=== PATIENT | female | born 1955 | race Caucasian/White ===

== ENCOUNTER 2016-05-16 02:12 | Inpatient (IN) | payer BC ==
[~2016-05-16] VITALS: Ht 170.2 cm; Wt 79.4 kg
[2016-05-16 03:26] LABS: APPEARANCE CLEAR (CLEAR); BILIRUBIN NEGATIVE (NEGATIVE); COLOR YELLOW (YELLOW); GLUCOSE NEGATIVE (NEGATIVE); KETONE NEGATIVE (NEGATIVE); LEUKOCYTE ESTERASE NEGATIVE (NEGATIVE); NITRITE NEGATIVE (NEGATIVE); PROTEIN NEGATIVE (NEGATIVE); UROBILINOGEN NORMAL (NORMAL)
[2016-05-16 04:42] LABS: BASOPHILS 0.2 % (0.0-2.0); EOSINOPHILS 0.5 % (0-7); HEMATOCRIT 37.3 % (36.0-48.0); HEMOGLOBIN 12.4 g/dL (12-16); IMMATURE GRANULOCYTES 0.4 % (0-5); LYMPHOCYTES 12.6 % (15-50); MCH 28.5 pg (26.0-34.0); MCHC 33.2 g/dL (31.0-37.0); MCV 85.7 fL (80.0-100.0); MEAN PLATELET VOLUME 11.1 fL (7.4-10.4); MONOCYTES 5.6 % (2-11); NEUTROPHILS 80.7 % (40-80); PLATELET COUNT 257 10x3/uL (130-400); RBC 4.35 10x6/uL (4.00-5.40); RDW 12.9 % (11.5-14.5); WBC 11.5 10x3/uL (4.8-10.8)
[2016-05-16 04:57] LABS: AMYLASE - SERUM 19 U/L (25-115); CALC OSMOLALITY 286 mosm/kg (275-300); CALCIUM 8.4 mg/dL (8.5-10.1); CARBON DIOXIDE 23.3 mmol/L (21.0-32.0); CHLORIDE - SERUM 105 mmol/L (98-107); CREATININE - SERUM 0.8 mg/dL (0.6-1.3); GLUCOSE 126 mg/dL (74-106); POTASSIUM - SERUM 3.6 mmol/L (3.5-5.1); SODIUM 142 mmol/L (136-145); UREA NITROGEN 18 mg/dL (7-18); eGFR NON AFRICAN AMERICAN 77 mL/min (90-120)
--- NOTE | 2016-05-16 07:00 | NUR ---
PATIENT IN BED WITH EYES CLOSED RESTING QUIETLY AT THIS TIME. CALL LIGHT WITHIN REACH. NO SIGNS OF DISTRESS.
--- NOTE | 2016-05-16 07:50 | NUR ---
PT REC'D FROM AJ HANSON. RESTING IN BED AAOX4. RATING CURRENT PAIN IN ABD 07/01. PROTONIX DRIP STARTED. WILL REASSESS. PIV SITE TO L HAND PATENT AND FREE OF REDDNESS AND SWELLING. BED LOW, CALL LIGHT IN REACH, DENIES NEEDS. CPOC.
[2016-05-16] MEDS ORDERED: SYNTHROID25 MCG PO (08:01)
[2016-05-16] MEDS ORDERED: ELAVIL10 MG PO (08:01)
[2016-05-16] MEDS ORDERED: BAYER CHEWABLE81 MG PO (08:02)
[2016-05-16] MEDS ORDERED: DULCOLAX STOOL100 MG PO (08:03)
[2016-05-16 08:38] VITALS: BP 135/86
[2016-05-16 13:04] VITALS: BP 107/67
[2016-05-16 13:08] VITALS: BMI 27.4
[2016-05-16 15:58] VITALS: BP 107/67; Ht 170.2 cm; Wt 79.4 kg
[2016-05-16 16:16] LABS: CKMB 0.2 U/L (0.0-3.6); CREATINE KINASE 29 UL (21-215); TROPONIN-I < 0.017 ng/mL (0.000-0.060)
[2016-05-16 16:43] VITALS: BP 136/71
[2016-05-16] MEDS ORDERED: LEVOTHYROXINE100 MCG (19:39)
[2016-05-16 20:00] VITALS: BP 133/70
[2016-05-16 22:20] LABS: CKMB 0.3 U/L (0.0-3.6); CREATINE KINASE 28 UL (21-215); TROPONIN-I < 0.017 ng/mL (0.000-0.060)
--- NOTE | 2016-05-16 23:08 | NUR ---
REC'D PATIENT FROM Kayce GONZALES LPN. PATIENT LYING SEMI FOWLERS IN BED. ALERT AND ORIENTED X4. DENIES PAIN AT THIS TIME. IS UP WITHOUT ASSIST. MUCUS MEMBRANES PINK AND MOIST. DENIES HEARING AND VISION PROBLEMS. HR S1 S2. LUNGS CLEAR IN ALL LOBES. ABDOMEN SOFT NON TENDER TO TOUCH. BOWELS HYPOACTIVE X4. REPORTED LAST BM 05/16/16. URINE CLEAR, STRAW-COLORED. DENIES PAIN ON URINATION. BLADDER NOT PALPABLE. FULL ROM IN UPPER AND LOWER EXTREMITIES. CAP REFILL <3 SECS IN UPPER AND LOWER EXTREM. IS A DALIY WEIGHT ON STRICT I&O. DENIES FURTHER NEEDS AT THIS TIME. INTRUCTED TO CALL IF NEEDED ANYTHING. PATIENT VERBLAZIED UNDERSTANDING. BED LOW, LOCKED, CALL LIGHT IN REACH.
[2016-05-17] VITALS: BP 115/72
--- NOTE | 2016-05-17 01:26 | NUR ---
PATIENT LYING IN BED ALSEEP. DENIES NEEDS AT THIS TIME. INTRUCTED TO CALL IF NEEDED ANYTHING. VERBALIZED UNDERSTANDING. BED LOW, LOCKED, CALL LIGHT IN REACH.
[2016-05-17 04:00] VITALS: BP 123/61
[2016-05-17 04:00] LABS: BASOPHILS 0.4 % (0.0-2.0); EOSINOPHILS 2.2 % (0-7); HEMATOCRIT 33.9 % (36.0-48.0); IMMATURE GRANULOCYTES 0.3 % (0-5); LYMPHOCYTES 36.2 % (15-50); MCH 28.4 pg (26.0-34.0); MCHC 32.4 g/dL (31.0-37.0); MCV 87.4 fL (80.0-100.0); MEAN PLATELET VOLUME 11.4 fL (7.4-10.4); MONOCYTES 6.2 % (2-11); NEUTROPHILS 54.7 % (40-80); PLATELET COUNT 226 10x3/uL (130-400); RBC 3.88 10x6/uL (4.00-5.40); RDW 13.2 % (11.5-14.5)
--- NOTE | 2016-05-17 04:00 | NUR ---
PATIENT SLEEPING WITH NO DISTRESS NOTED. CALL LIGHT WITHIN REACH.
[2016-05-17 04:05] LABS: WBC 7.6 10x3/uL (4.8-10.8)
[2016-05-17 04:44] LABS: ALBUMIN 3.1 g/dL (3.4-5.0); ALKALINE PHOSPHATASE 80 U/L (46-116); ALT (SGPT) 20 U/L (10-68); BILIRUBIN - TOTAL 0.61 mg/dL (0.2-1.3); CALCIUM 7.9 mg/dL (8.5-10.1); CARBON DIOXIDE 25.4 mmol/L (21.0-32.0); CHLORIDE - SERUM 110 mmol/L (98-107); CKMB 0.2 U/L (0.0-3.6); CREATINE KINASE 25 UL (21-215); CREATININE - SERUM 0.6 mg/dL (0.6-1.3); GLUCOSE 94 mg/dL (74-106); POTASSIUM - SERUM 3.4 mmol/L (3.5-5.1); PROTEIN - SERUM 5.8 g/dL (6.4-8.2); SODIUM 142 mmol/L (136-145); eGFR NON AFRICAN AMERICAN > 90 mL/min (90-120)
[2016-05-17 04:46] LABS: CALC OSMOLALITY 281 mosm/kg (275-300); TROPONIN-I < 0.017 ng/mL (0.000-0.060); UREA NITROGEN 10 mg/dL (7-18)
--- NOTE | 2016-05-17 05:54 | NUR ---
PATIENT IS SITTING UP IN BED WATCHING TV. DENIES NEEDS AT THIS TIME. INTRUCTED TO CALL IF NEEDED ANYTHING. VERBLALIZED UNDERSTANDING. BED LOW, LOCKED, CALL LIGHT IN REACH.
--- NOTE | 2016-05-17 07:15 | NUR ---
REPORT RECEIVED FROM SUPERVISOR MOLD YARD NURSE. CALL LIGHT IN REACH.
--- NOTE | 2016-05-17 07:30 | NUR ---
PATIENT IN BED WITH NO COMPLAINTS AT THIS TIME. IV INTACT. CALL LIGHT WITHIN REACH.
[2016-05-17 08:35] VITALS: BP 126/68
--- NOTE | 2016-05-17 09:30 | NUR ---
ASSESSMENT COMPLETED. CALL LIGHT IN REACH. WILL CONTINUE WITH PLAN OF CARE.
--- NOTE | 2016-05-17 11:03 | NUR ---
AMBULATED IN HALLWAY ADLB. TOLERATED WELL. WANTS TO TAKE SHOWER BEFORE PREP STARTS.
[2016-05-17 11:23] VITALS: BP 123/74
--- NOTE | 2016-05-17 11:56 | NUR ---
FIRST DOSE OF OSMOPREP ADMINISTERED WITH 12 OZ OF WATER AND 8 OZ SPRITE.
--- NOTE | 2016-05-17 12:30 | NUR ---
2ND DOSE OF PILLS GIVEN. VISITOR IN ROOM. CALL LIGHT IN REACH.
--- NOTE | 2016-05-17 13:05 | NUR ---
3RD DOSE ADMINISTERED. WAITING ON PROTONIX BAG FROM PHARMACY.
--- NOTE | 2016-05-17 13:27 | NUR ---
NEW BAG OF PROTONIX INITIATED. 4TH DOSE OF MEDS GIVEN. DR. WIGGINS IN ROOM. CALL LIGHT IN REACH.
--- NOTE | 2016-05-17 14:07 | NUR ---
C/O NAUSEA. NEW ORDER FOR ZOFRAN.
--- NOTE | 2016-05-17 14:18 | NUR ---
ZOFRAN 4 MG SIVP. CALL LIGHT IN REACH.
[2016-05-17 15:50] VITALS: BP 146/62
--- NOTE | 2016-05-17 16:17 | NUR ---
ISADORACOLAX PO PER ORDER. CALL LIGHT IN REACH.
--- NOTE | 2016-05-17 18:01 | NUR ---
NO CHANGES IN INITIAL ASSESSMENT. CALL LIGHT IN REACH. FAMILY IN ROOM. WILL CONTINUE WITH PLAN OF CARE.
[2016-05-17 19:00] VITALS: BP 116/69
--- NOTE | 2016-05-17 20:10 | NUR ---
ASSESSMENT COMPLETED, NO ACUTE DISTRESS NOTED, FALL PRECAUTIONS IN PLACE, CL IN REACH, WILL MONITOR
--- NOTE | 2016-05-17 21:44 | NUR ---
PRN ZOFRAN GIVEN PER REQUEST ALONG WITH [employer] AND SCHEDULED PROTONIX, GLADIS WELL, DENIES OTHER NEEDS, WILL MONITOR
--- NOTE | 2016-05-17 23:36 | NUR ---
RESTING WITH EYES CLOSED, RESP WITH EASE, NO DISTRESS NOTED, CL IN REACH
--- NOTE | 2016-05-18 01:52 | NUR ---
CONTINUES TO REST WITH EYES CLOSED, NO DISTRESS NOTED, CL IN REACH
[2016-05-18 04:00] VITALS: BP 113/70
[2016-05-18 06:03] LABS: BASOPHILS 0.2 % (0.0-2.0); EOSINOPHILS 1.6 % (0-7); HEMOGLOBIN 10.2 g/dL (12-16); IMMATURE GRANULOCYTES 0.3 % (0-5); LYMPHOCYTES 32.2 % (15-50); MCH 28.4 pg (26.0-34.0); MCHC 32.9 g/dL (31.0-37.0); MCV 86.4 fL (80.0-100.0); MEAN PLATELET VOLUME 10.9 fL (7.4-10.4); MONOCYTES 6.6 % (2-11); NEUTROPHILS 59.1 % (40-80); PLATELET COUNT 257 10x3/uL (130-400); RBC 3.59 10x6/uL (4.00-5.40); RDW 13.4 % (11.5-14.5); WBC 8.7 10x3/uL (4.8-10.8)
[2016-05-18 06:26] LABS: ALBUMIN 2.9 g/dL (3.4-5.0); ALKALINE PHOSPHATASE 75 U/L (46-116); ALT (SGPT) 21 U/L (10-68); BILIRUBIN - TOTAL 0.58 mg/dL (0.2-1.3); CALC OSMOLALITY 284 mosm/kg (275-300); CALCIUM 7.7 mg/dL (8.5-10.1); CARBON DIOXIDE 24.4 mmol/L (21.0-32.0); CHLORIDE - SERUM 111 mmol/L (98-107); CREATININE - SERUM 0.6 mg/dL (0.6-1.3); GLUCOSE 102 mg/dL (74-106); PROTEIN - SERUM 5.6 g/dL (6.4-8.2); SODIUM 144 mmol/L (136-145); UREA NITROGEN 7 mg/dL (7-18); eGFR NON AFRICAN AMERICAN > 90 mL/min (90-120)
--- NOTE | 2016-05-18 07:28 | NUR ---
10 MEQ DALILAER HUNG PER E. PROTOCOL FOR LEVEL OF 3.0, GLADIS WELL, CL IN REACH
--- NOTE | 2016-05-18 08:00 | NUR ---
UNABLE TO TOLERATE IV POTASSIUM FOR PROTOCOL, PT IS NPO FOR EGD AND COLONOSCOPY. WILL TREAT POTASSIUM POST PROCEDURE. CALL LIGHT IN REACH, WILL CONTINUE WITH PLAN OF CARE.
[2016-05-18 08:04] VITALS: BP 115/63
--- NOTE | 2016-05-18 09:30 | NUR ---
AMBULATING IN HALLWAY INDEPENDENTLY AT THIS TIME. DENIES NEEDS AT THIS TIME. REMAINS NPO.
[2016-05-18 12:11] VITALS: BP 125/68
--- NOTE | 2016-05-18 14:00 | NUR ---
1,500 ML WARM, SOAP SUDS ENEMA ADMINISTERED WITHOUT DIFFICULTY. PT ABLE TO WITHOLD FLUID FOR 5 MINUTES BEFORE EXPELLING. RESULT WAS CLEAR. NO FURTHER ENEMAS NEEDED.
--- NOTE | 2016-05-18 14:38 | NUR ---
Patient Name: JOSEP DONIS Admission Status: ER Accout number: [id number] Admission Date: 05-17-2016 : 1955 Admission Diagnosis: Attending: DONNA Current LOS: 1 Anticipated DC Date: 05-20-2016 Planned Disposition: Home Primary Insurance: [place] OUT OF STATE Discharge Planning Comments: CM MET WITH PATIENT REGARDING D/C NEEDS AND PLANS. PATIENT STATED SHE LIVES WITH HER SPOUSE (VIGNESH) AND HE WILL DRIVE HER HOME AT DISCHARGE. PATIENT IS INDEPENDENT WITH HER CARE AND HAS NO DME AT HOME. PATIENTS PCP IS DR. BATES AND PHARMACY IS [facility] [address] PATIENT HAS NEVER HAD HOME HEALTH AND DOES NOT THINK SHE WILL NEED IT AT D/C AT THIS TIME. CM WILL CONTINUE TO FOLLOW PATIENT WITH D/C NEEDS AND PLANS. PCP DR[facility] [address] [phone] VIGNESH (SPOUSE) [phone] Stacker Driver: Trudy Matos Is the patient Alert and Oriented? Yes 0 * How many steps to enter\exit or inside your home? 0 0 * PCP JANA 0 * Pharmacy [facility] [address] 0 * Preadmission Environment Home with Family 0 * ADLs Independent 0 * Equipment None 0 * List name and contact numbers for known caregivers / representatives who currently or will assist patient after discharge: VIGNESH (SPOUSE) [phone] * Community resources currently utilized None 0 * Additional services required to return to the preadmission environment? Yes 0 * Can the patient safely return to the preadmission environment? Yes 0 * Has this patient been hospitalized within the prior 30 days at any hospital? No 0 Grand Total: 0
[2016-05-18 15:10] VITALS: BP 127/83
--- NOTE | 2016-05-18 17:20 | NUR ---
TAKEN FOR EGD AND COLONOSCOPY AT THIS TIME. WILL MONITOR PT WHEN SHE RETURNS TO HER ROOM.
--- NOTE | 2016-05-18 18:20 | NUR ---
REPORT RECEIVED FROM SORAYA AZUL RN IN THE GI LAB. STATED PT WAS STABLE AND WOULD BE TRANSFERRED BACK TO ROOM 2232.
--- NOTE | 2016-05-18 18:22 | NUR ---
1742-INJECT 3 CC EPINEPHERINE WITH GOLD PROBE INTO DUODINAL ULCER.
[2016-05-18 18:45] VITALS: BP 133/57
--- NOTE | 2016-05-18 18:45 | NUR ---
RECEIVED BACK TO ROOM 2232 AT THIS TIME. VITAL SIGNS STABLE AND FAMILY AT BEDSIDE. IV TO LEFT HAND PATENT. WILL CONTINUE WITH PLAN OF CARE.
--- NOTE | 2016-05-18 19:20 | NUR ---
ASSESSMENT COMLETED, NO ACUTE DISTRESS NOTED, DENIES NEEDS, SPOUSE IN ROOM, FALL PRECAUTIONS IN PLACE, CL IN REACH, WILL MONITOR
--- NOTE | 2016-05-18 21:24 | NUR ---
CARAFATE GIVEN PER MAR, GLADIS WELL, PLACED ON BEDPAN PER REQUEST, DENIES OTHER NEEDS, CL IN REACH
--- NOTE | 2016-05-18 23:42 | NUR ---
RESTING WITH EYES CLOSED, RESP WITH EASE, NO DISTRESS NOTED, SPOUSE AT BEDSIDE, CL IN REACH
[2016-05-19 04:00] VITALS: BP 103/61
--- NOTE | 2016-05-19 05:41 | NUR ---
MEDS GIVEN PER MAR, GLADIS WELL, SPOUSE IN ROOM, CL IN REACH
[2016-05-19 06:30] LABS: BASOPHILS 0.3 % (0.0-2.0); HEMATOCRIT 28.5 % (36.0-48.0); HEMOGLOBIN 9.5 g/dL (12-16); IMMATURE GRANULOCYTES 0.3 % (0-5); LYMPHOCYTES 31.5 % (15-50); MCH 28.8 pg (26.0-34.0); MCHC 33.3 g/dL (31.0-37.0); MCV 86.4 fL (80.0-100.0); MEAN PLATELET VOLUME 11.1 fL (7.4-10.4); MONOCYTES 6.2 % (2-11); NEUTROPHILS 60.7 % (40-80); PLATELET COUNT 267 10x3/uL (130-400); RDW 13.3 % (11.5-14.5); WBC 7.8 10x3/uL (4.8-10.8)
[2016-05-19 06:58] LABS: ALBUMIN 2.8 g/dL (3.4-5.0); ALKALINE PHOSPHATASE 74 U/L (46-116); ALT (SGPT) 23 U/L (10-68); CALC OSMOLALITY 278 mosm/kg (275-300); CALCIUM 8.2 mg/dL (8.5-10.1); CARBON DIOXIDE 26.3 mmol/L (21.0-32.0); CHLORIDE - SERUM 106 mmol/L (98-107); CREATININE - SERUM 0.6 mg/dL (0.6-1.3); GLUCOSE 93 mg/dL (74-106); POTASSIUM - SERUM 3.1 mmol/L (3.5-5.1); PROTEIN - SERUM 5.4 g/dL (6.4-8.2); SODIUM 140 mmol/L (136-145); eGFR NON AFRICAN AMERICAN > 90 mL/min (90-120)
[2016-05-19 07:00] LABS: UREA NITROGEN 13 mg/dL (7-18)
[2016-05-19 08:39] VITALS: BP 131/69
[2016-05-19 11:43] VITALS: BP 119/49
--- NOTE | 2016-05-19 15:11 | NUR ---
NUTRITION MONITORING & EVAL CHART REVIEWED. CLEAR LIQUID DIET. WILL MONITOR DIET ADVANCEMENT, PO INTAKE. RD FOLLOWING
[2016-05-19 17:04] VITALS: BP 110/55
--- NOTE | 2016-05-19 18:11 | PRO ---
PATIENT:JOSEP DONIS MEDICAL RECORD: [id number] : 51 LOCATION:[facility] ADMISSION DATE: 05/17/16 PROCEDURE PERFORMED BY: VIGNESH ANDERSON MD DATE OF PROCEDURE: 05/18/2016 ACADEMIC VICE PRESIDENT: Vignesh Anderson MD PROCEDURE: EGD with biopsy and cauterization of a duodenal ulcer as well as colonoscopy. INDICATION: Patient is a 60-year-old white female whose primary care physician is Dr. Danilo Valdivia and with history of underlying chronic constipation, irritable bowel syndrome, fibromyalgia, basically who was admitted with epigastric pain and black stool. She apparently went to walk-in clinic and a CT of the abdomen was reportedly weird and was abnormal revealing a questionable soft tissue mass in the lumen of the proximal ascending colon. She had heme-positive stool. She was subsequently admitted for further evaluation. She apparently had a colonoscopy 3 years ago that was normal by another physician. She is already status post cholecystectomy. She is now for both upper and lower endoscopy. She is on a baby aspirin daily. She is not on a PPI. On admission, her BUN was 18, creatinine was 37, today is 31. PREMEDICATION: Taper anesthesia. INSTRUMENT: Olympus video gastroscope and adjustable colonoscope. FINDINGS: Her EGD was performed first. The gastroscope was passed through the oropharynx to the second portion of the duodenum without difficulty. The esophagus and stomach were basically normal other than scant gastritis. There was some blood-tinged fluid in the stomach, which was suctioned. The duodenum was entered, it was remarkable for a fairly large blood clot that looked fairly fresh and accomplished roughly the whole duodenal bulb. After a lot of irrigation and suctioning, I was finally able to pull this clot off of a fairly moderate to large sized duodenal ulcer on the anterior wall of the second portion of duodenum right in the curvature. There was an obvious visible vessel seen that was quite friable. This ulcer was about probably 1.5-2 cm in diameter. I elected to treat this ulcer, first by injecting a cc of epinephrine times 3 around the vessels best possible. I then cauterized the vessel with gold probe using 30 joules times 2 with seemingly good results. I did take some biopsies from the stomach to rule out H. pylori by means of histology. The rest of exam was normal. I then performed a colonoscopy. Rectal exam was normal. The colonoscope passed through the rectum into the cecum with mild to moderate difficulties secondary to quite a bit of loop in the colon. Prep was fair to borderline. There was quite a bit of melena in the colon making visualization little difficult. Inspection of the right colon; however, from what I can tell colonoscopy was normal. There was certainly no mass in ascending colon at all. Again, the prep was somewhat borderline, so small mucosal abnormalities could have been missed, however, there is nothing significant seen. The patient tolerated the procedure well without any complication. IMPRESSION: 1. Moderate to large sized duodenal ulcer with an actively bleeding visible PROCEDURE NOTE [id number] JOSEP DONIS, now status post cauterization with gold probe and injection of epinephrine as noted above. 2. Scant gastritis. 3. Otherwise, normal EGD and colonoscopy. RECOMMENDATIONS: 1. Actually avoid all aspirin and NSAIDs. 2. Continue Protonix drip. 3. Carafate 1 gram q.i.d. for now. 4. Follow up biopsy results. 5. We need to watch her in the hospital for another day or two to ensure there no further bleeding from this ulcer. Once we know she has stopped bleeding, can advance diet and discharge to home. She will need long-term PPI therapy. TRANSINT:[id number] Voice Confirmation ID: [id number] DOCUMENT ID: [id number] VIGNESH ANDERSON MD at 1811 CC: SHENG THOMPSON MD and HODAN BATES MD [id number] DICTATION DATE: 05/18/16 1824 DRILL PRESSER: 05/19/16 0651 [facility] IN [facility] [address] [id number]
[2016-05-19 19:00] VITALS: BP 126/74
--- NOTE | 2016-05-19 19:00 | NUR ---
PATIENT IN BED WATCHING TV. HOB 30 DEGREES. AAOX4. RR EVEN AND UNLABORED. 0 S/S OF DISTRESS. DENIES PAIN AT THIS TIME. IV TO LEFT HAND PATENT WITH NO REDNESS OR SWELLING. CSD'S ON. SRX2. BED LOW. CALL LIGHT WITHIN REACH.
--- NOTE | 2016-05-19 21:00 | NUR ---
ASSESSMENT COMPLETE. NIGHTTIME MED GIVEN. NO OTHER NEEDS AT THIS TIME.
[2016-05-20 04:00] VITALS: BP 102/63
--- NOTE | 2016-05-20 04:00 | NUR ---
PATIENT SLEEPING WITH NO DISTRESS NOTED. CALL LIGHT WITHIN REACH.
[2016-05-20 05:21] LABS: BASOPHILS 0.5 % (0.0-2.0); EOSINOPHILS 1.8 % (0-7); HEMATOCRIT 27.1 % (36.0-48.0); HEMOGLOBIN 9.2 g/dL (12-16); IMMATURE GRANULOCYTES 0.3 % (0-5); LYMPHOCYTES 28.2 % (15-50); MCH 29.4 pg (26.0-34.0); MCHC 33.9 g/dL (31.0-37.0); MCV 86.6 fL (80.0-100.0); MEAN PLATELET VOLUME 10.8 fL (7.4-10.4); MONOCYTES 7.8 % (2-11); NEUTROPHILS 61.4 % (40-80); PLATELET COUNT 262 10x3/uL (130-400); RBC 3.13 10x6/uL (4.00-5.40); RDW 13.6 % (11.5-14.5); WBC 6.6 10x3/uL (4.8-10.8)
[2016-05-20 05:37] LABS: ALBUMIN 2.8 g/dL (3.4-5.0); ALKALINE PHOSPHATASE 65 U/L (46-116); ALT (SGPT) 21 U/L (10-68); BILIRUBIN - TOTAL 0.55 mg/dL (0.2-1.3); CALCIUM 7.7 mg/dL (8.5-10.1); CARBON DIOXIDE 25.3 mmol/L (21.0-32.0); CREATININE - SERUM 0.6 mg/dL (0.6-1.3); GLUCOSE 100 mg/dL (74-106); PROTEIN - SERUM 5.4 g/dL (6.4-8.2); eGFR NON AFRICAN AMERICAN > 90 mL/min (90-120)
[2016-05-20 05:42] LABS: UREA NITROGEN 4 mg/dL (7-18)
[2016-05-20 05:52] LABS: CALC OSMOLALITY 281 mosm/kg (275-300); CHLORIDE - SERUM 110 mmol/L (98-107); SODIUM 143 mmol/L (136-145)
[2016-05-20 12:00] VITALS: BP 117/65
[2016-05-20] MEDS ORDERED: CARAFATE1 G/10 ML PO (12:21)
[2016-05-20] MEDS ORDERED: PROTONIX40 MG PO (12:21)
--- NOTE | 2016-05-20 13:44 | NUR ---
CM REASSESSMENT NOTE: PATIENT IS DISCHARGING HOME TODAY-SPOUSE IS DRIVING HER. PATIENT REFUSED HOME HEALTH OR ANY OTHER NEEDS.
[2016-05-20 14:57] LABS: HEMOGLOBIN 10.7 g/dL (12-16)
[2016-05-20 15:04] LABS: HEMATOCRIT 32.6 % (36.0-48.0)
--- NOTE | 2016-05-22 14:54 | EC ---
PATIENT:JOSEP DONIS DATE OF SERVICE: 05/17/16 SEX: F MEDICAL RECORD: [id number] DATE OF : [birth year] LOCATION:[facility] AGE OF PATIENT: 60 ADMISSION DATE: 05/17/16 REFERRING PHYSICIAN: INTERPRETING PHYSICIAN: REECE RIVAS M.D. ECHOCARDIOGRAM REPORT ECHO CHARGES 4 ECHO COMPLETE CLINICAL DIAGNOSIS: NEAR SYNCOPE ECHOCARDIOGRAPHIC MEASUREMENTS (adult normal given) AC root (d.<3.7cm) 3.4 LV Septum d (<1.2 cm> 1.4 Valve Excursion 1.7 LV Septum (systole) 1.5 Left Atria (s.<4.0cm> 3.8 LVPW d(<1.2cm) 1.5 RV (d.<2.3cm) 3.5 LVPW (sytole) 1.8 LV diastole(<5.6CM) 4.2 MV E-F(>70mm/sec) LV systole 2.6 LVOT Diameter 1.9 MV exc.(>10mm) 10 Est.ejection fraction (50-75%) Pericardial Effusion N DOPPLER: LVIT A 107 E 83.0 LA RVSP 23 LVOT 104 AOP1/2T Asc. Ao 150 RVOT 100 RA PA 130 AV Gradient Peak 9.00 AV Mean 4.09 AV Area 2.3 MV Gradient Peak 5.52 MV Mean 2.23 MV Area COMMENTS: Manager Assessment: Rigoberto CRAWFORD Support Analyst:Rigoberto Rivas TAPE# PACS DATE OF SERVICE: 05/17/2016 REFERRING PHYSICIAN: Lenny Roberts MD. INDICATION: Syncope. DESCRIPTION: Left ventricle demonstrates left ventricular hypertrophy. No wall motion abnormalities are noted. Estimated ejection is 60%. Mitral valve is structurally normal. There is no regurgitation or prolapse seen. Left atrium is normal in size. The aortic valve is trileaflet. There is no stenosis or ECHOCARDIOGRAM REPORT [id number] JOSEP DONIS regurgitation seen. Right ventricle is mildly dilated. Tricuspid valve is structurally normal. There is mild regurgitation noted. Right atrium is normal size. There is no pericardial effusion seen. IMPRESSION: 1. Left ventricular hypertrophy with preserved ejection fraction of 60%. 2. Mild tricuspid regurgitation. TRANSINT:[id number] Voice Confirmation ID: [id number] DOCUMENT ID: [id number] REECE RIVAS M.D. at 1454 CC: [id number] DICTATION DATE: 05/17/16 1347 MANUFACTURING APPLICATIONS ENGINEER: 05/18/16 0024 DIS IN 05/20/16 [facility] [address] [place] [address]
== END 2016-05-20 17:13 | disposition home or self-care (01) | DRG 378 ==
LOC: D.ER 02:12 → D.MS 06:10 → OBSVTIME 06:10 → D.MS 05-17 17:37
PROVIDERS: Family Medicine; Internal Medicine Gastroenterology; ADMIT Family Medicine
PROC: 0DJD8ZZ Inspection of Lower Intestinal Tract, Via Natural or Artificial Opening Endoscopic (ICD-10-PCS; 2016-05-18)
PROC: 0W3P8ZZ Control Bleeding in Gastrointestinal Tract, Via Natural or Artificial Opening Endoscopic (ICD-10-PCS; principal; 2016-05-18 16:00)
DX: K26.4 Chronic or unspecified duodenal ulcer with hemorrhage (principal); I24.8 Other forms of acute ischemic heart disease; R10.13 Epigastric pain; R13.10 Dysphagia, unspecified; E87.6 Hypokalemia; K58.1 Irritable bowel syndrome with constipation; M79.7 Fibromyalgia; Z82.49 Family history of ischemic heart disease and other diseases of the circulatory system; D64.9 Anemia, unspecified; E03.9 Hypothyroidism, unspecified; K59.09 Other constipation

== ENCOUNTER → 2016-09-09 08:02 | Outpatient (CLI) | payer BC ==
[~2016-09-09 08:02] MED LIST: BAYER CHEWABLE81 MG PO; CARAFATE1 G/10 ML PO; DULCOLAX STOOL100 MG PO; ELAVIL10 MG PO; LEVOTHYROXINE100 MCG; PROTONIX40 MG PO; SYNTHROID25 MCG PO
== END | disposition home or self-care (01) ==
LOC: D.CT 09-08 09:00
DX: R19.03 Right lower quadrant abdominal swelling, mass and lump (principal)